=== PATIENT | male | born 1935 | race Caucasian/White ===

== ENCOUNTER 2021-05-10 09:03 | Inpatient (IN) | payer MEDICARE ==
[~2021-05-10] VITALS: Ht 175.3 cm; Wt 77.0 kg
[2021-05-10] MEDS ORDERED: SIMVASTATIN20 MG PO (09:39)
[2021-05-10] MEDS ORDERED: ATENOLOL25 MG PO (09:39)
[2021-05-10] MEDS ORDERED: WARFARIN SODIU7.5 MG PO (09:40)
[2021-05-10] MEDS ORDERED: FLOMAX0.4 MG PO (09:40)
[2021-05-10] MEDS ORDERED: SIMBRINZA 1%-0.28 ML OPTH (09:41)
[2021-05-10] MEDS ORDERED: DONEPEZIL HCL5 MG PO (09:41)
[2021-05-10] MEDS ORDERED: TIMO 0.5%-DORZ 25 ML OP (09:42)
[2021-05-10] MEDS ORDERED: PLAVIX75 MG PO (09:49)
--- NOTE | 2021-05-10 13:00 | NUR ---
PT ARRIVED TO FLOOR VIA STRETCHER. PT IS ALERT AND ORIENTED. WITH DEMENTIA IS AT BEDSIDE. PT IS ON 3L NC. CPOX PLACED. VITALS TAKEN AND STABLE. LATE LUNCH PROVIDED. PT SATTING AT 97% ON 3L. TITRATED TO 2LNC. ASSESSMENT COMPLETED. LUNGS WITH CRACKLES. AND CONJESTED. PT WITH WET COUGH. COUGHING UP MODERATE AMOUNTS OF THICK SPUTUM. BOWEL TONES ACTIVE. ORIENTED TO ROOM. CALL LIGHT IN REACH. PT INFORMED HE NEEDS TO CALL [employer] TO COME REMOTE PILOT OPERATOR HE IS HER INTERNSHIP COORDINATOR CAREGIVER. PT UNDERSTANDS. CHARGE NURSE MADE CALL TO MARIA FERNANDA MIJARES DISCUSS PLANS FOR PICKING HER UP.
--- NOTE | 2021-05-10 13:09 | NUR ---
SPOKE WITH PT'S SON MARYANA REGARDING HIS MOTHER. ADVISED THAT SOMEONE, EITHER HIM, A FRIEND OR OTHER FAMILY MEMBER NEEDS TO COME ASSUME CARE OF HIS MOTHER WE CANNOT HAVE A PT A PRIMARY CAREGIVER FOR SOMEONE ELSE. HIS DAD CALLED HIS NUMBER WHILE WE WERE TALKING AND NOW HE IS CURRENTLY TALKING TO TO PATIENT. IS CURRENTLY IN ROOM SECURITY BROUGHT HER AFTER SHE WAS FOUND CRYING IN THE FRONT OF BUILDING.
[2021-05-10] MEDS ORDERED: TRELEGY ELLIPT1 EACH INH (13:38)
[2021-05-10] MEDS ORDERED: LEVALBUTER1.25 MG/3 INH (14:34)
[2021-05-10] MEDS ORDERED: DIVALPROEX SOD250 MG PO (14:35)
[2021-05-10] MEDS ORDERED: DULOXETINE HCL30 MG PO (14:35)
[2021-05-10] MEDS ORDERED: ATROPINE SULFATE2 ML OPTH (14:41)
[2021-05-10] MEDS ORDERED: FLUTICASONE PRO16 GM NAS (14:42)
[2021-05-10] MEDS ORDERED: VITAMIN D325 MC3 PO (14:42)
--- NOTE | 2021-05-10 15:00 | NUR ---
PT ARRIVED TO FLOOR VIA STRETCHER. PT IS ALERT AND ORIENTED. WITH DEMENTIA IS AT BEDSIDE. PT IS ON 3L NC. CPOX PLACED. VITALS TAKEN AND STABLE. LATE LUNCH PROVIDED. PT SATTING AT 97% ON 3L. TITRATED TO 2LNC. ASSESSMENT COMPLETED. LUNGS WITH CRACKLES. AND CONJESTED. PT WITH WET COUGH. COUGHING UP MODERATE AMOUNTS OF THICK SPUTUM. BOWEL TONES ACTIVE. ORIENTED TO ROOM. CALL LIGHT IN REACH. PT INFORMED HE NEEDS TO CALL [employer]I TO COME WEB PROGRAMMER HE IS HER COMMERCIAL ARTIST LETTERING CAREGIVER. PT UNDERSTANDS. CHARGE NURSE MADE CALL TO MARIA FERNANDA MIJARES DISCUSS PLANS FOR PICKING HER UP.
--- NOTE | 2021-05-10 16:07 | NUR ---
Medications reconciled using pharmacy records, patient's home med list and patient interview. Patient takes most of his medications in the evening and he has taken all of his home medications this morning before admitted
--- NOTE | 2021-05-10 18:05 | NUR ---
Patient just started eating dinner. Bed linens were changed. Patient is sitting up in bed. Vitals, I&Os are complete.
--- NOTE | 2021-05-10 18:22 | NUR ---
PT SAT UP IN BED FOR DINNER 2L NC IN PLACE. BROUGHT TO ER FOR COVID TEST. PT DENEIS SOB OR PAIN. CALL LIGHT IN REACH. SON GETTING READY TO COME TO TAKE CARE OF PT'S .
--- NOTE | 2021-05-10 20:59 | NUR ---
on 2L NC, moist productive cough of white/yellow phlegm. lungs wheezing, sl lfa, irregular heart rate, has mechanical valve, had loose stools, tolerarting fluids, cbg 226, 5 units humolog. on airborne isolation precautions. cooperative, in room
--- NOTE | 2021-05-10 22:32 | EKG ---
[facility] [address] [place] [address] Signed Sinus rhythm with premature atrial complexes Cannot rule out Anterior infarct , age undetermined Abnormal ECG No previous ECGs available Confirmed by MAYA SHEPPARD MD ([id number]) on 05/10/2021 10:31:54 PM Electronically Signed By: MAYA SHEPPARD MD 05/10/212231 PATIENT NAME: TRAVIS PIERSON Bob Electrocardiogram DATE OF : 37 PHYSICIAN: MAYA SHEPPARD MD REPORT #: [id number] REPORT IS CONFIDENTIAL AND NOT TO BE RELEASED WITHOUT AUTHORIZATION
--- NOTE | 2021-05-11 00:50 | NUR ---
CONT ON AIRBORNE ISOLATION PRECAUTIONS, IN ROOM, CONFUSED, CAME OUT OF ROOM, REMINDED TO STAY IN ROOM, AND ON GOING BACK SHE WALKED INTO WRONG ROOM. REMINDED AGAIN, PLEASANTLY CONFUSED AND REDIRECTABLE. FRESH FLUIDS GIVEN TO HER. PT W O2 2LNC, TELE#[address], SATS 94#, VERBAL AND WRITTEN INFORMATION AND REMINDERS ABOUT PRONING GIVEN, TURNED TO LEFT SIDE, COOPERATIVE, FOLLOWS INSTRUCTIONS, ALL PROCEDUREES EXPLAINED. VOIDED SMALL AMOUNS DARK YELLOW URINE. TOLERATING FLUIDS WELL, NO EMESIS.
--- NOTE | 2021-05-11 01:21 | NUR ---
PTS CAME OUT OF ROOM AGAIN, REMINDED TO STAY IN ROOM SHE IS COVID+, EASILY REDIRECTABLE, REDIRECTED TO ROOM. SON IS SUPPOSSED TO COME AND GET PT, NOT HERE YET. FRESH FLUIDS AND BLANKET GIVEN TO , IN RECLINER. PT AWAKE, GETTING NEB TX, ON 2LNC, TELE/CPOX #[address] SATS WERE 91%
--- NOTE | 2021-05-11 02:01 | NUR ---
pt cooperative, sats 85% on 2L, increased to 3L, sats went up and then dropped to 87%, placed on Oxymask at 4L, sats per tele/cpox 90-92%. cooperative, proned to L sided, no void since last night. tolerating liquids, has moist productive cough with white-yellow phlegm. goes back to sleep, call light at bedside. Son here from [facility], to take mother home. Pts left with son
--- NOTE | 2021-05-11 05:21 | NUR ---
Up to edge of bed, urinating, using urinal, O2 Oxymask came undone from wall, sasts 76%, back on Oxymask 4L NC, slight sob with exertion noted once O2 was back on. sat on edge of bed for 5-10 minutes, talking sats 90-97%. Back to bed, with minimum of assist.
--- NOTE | 2021-05-11 05:55 | NUR ---
Pt has slept this shift, was on 2L Oxymask , desatted to low 80's, increaed to 3L then 4L. currently on 4L NC, pt did desatted to 76% when up to edge of bed to use urinal, tubing came off wall, recuperated well once O2 was back on, slight SOb with exertion noted, lungs with wheezing and crackles, occassional moist productive cough of white/yellow thick phlegm. cooperative , information on Covid proning positioning given and understood by pt, has turned to both R and Left proning sides. hob elevated to comfort. on Airborne isolation precautions. tolerating fluids well, no emesis, uses call light. sl patent. .
--- NOTE | 2021-05-11 07:24 | NUR ---
Shift report received from RN Kati pt resting safely in bed w/ call light in reach. 90% on 4L via oxy mask.
--- NOTE | 2021-05-11 08:00 | NUR ---
Spoke with Carlos, he states he lives in [place], [place] in a 1 story home. He spends [place]ry in [place] and winter in [place]. Pt was passing through [place] on his way home to [place] when he became symptomatic with covid. Son arrived from [place] last night and took mom, who has dementia to a motel. Pt states he is retired and uses [facility] for his pharmacy. He uses [email or web address] for routine meds. He pc p is Karen Damon at [facility]. Discussed 02 with pt as he is on 024L and 02 qualifier on day of discharge will complete. Pt plans on cont. to drive and self home to [place]. I will work with [employer] to find one that will supply 02 to [place].
--- NOTE | 2021-05-11 08:25 | NUR ---
PT RESTING IN BED SAFELY W/ CALL LIGHT IN REACH. MORNING ASSESMENT COMPLETE AND SCHEDULED MEDS GIVEN PER PROVIDER ORDERS. PT DENIES ANY NEEDS AT THIS TIME, RT ESTELLE IN ROOM GIVING NEB TREATMENT
--- NOTE | 2021-05-11 10:00 | NUR ---
Spoke with Jess at [facility] in [facility]. Updated, pt wanting to cont. on to [place] in his RV to his home. She states they do cover [place], [place]. She request face sheet and chart notes. I will fax 02 qualifier on day of dc. She will contact [place] office and arrange ofr 02 in the home when pt arrives in 3-5 days. [facility] will deliver concentrator and tanks for pt to use on his trip home.
--- NOTE | 2021-05-11 10:38 | NUR ---
PT SITTING UP ON SIDE OF BED W/ CALL LIGHT IN REACH, PT DENIES ANY NEEDS AT THIS TIME. O2 SATS 91% ON 4L VIA NC.
--- NOTE | 2021-05-11 10:53 | NUR ---
Patient ate 25% of breakfast and said it tasted good, but he's lost his sppitite. He refused lunch but he said he may change his mind to eat later. Vitals are complete and I&Os.
--- NOTE | 2021-05-11 12:00 | NUR ---
RT IN ROOM GIVING PT NEB TREATMENT. PT DENIES ANY NEEDS AT THIS TIME. O2 SATS 98% ON 4L VIA NC
--- NOTE | 2021-05-11 13:13 | NUR ---
Spoke with Carlos, he plans on dc this afternoon or tomorrow. Updated [facility] will provide concentrator and portable 02 to home and will contact the closest store to set up 02 when he arrives home. He cont. to drive himself and his to [place]. States if he gets tired, they are in a motorhome and will stop and rest. He states he is also + for covid now. He is anxious to get home. Informed I will speak with the about ordering an 02 qualifier today, so o2 can be delivered early tomorrow.
--- NOTE | 2021-05-11 13:46 | NUR ---
Patient says that they are not very hungry mainly to a loss in appitite. Patient said to ask for dinner order later. Patient is going to go to the restroom real quick. Call light is in reach.
--- NOTE | 2021-05-11 14:15 | NUR ---
PT SITTING UP IN BED SAFELY W/ CALL LIGHT IN REACH. PT DENIES SOB OR ANY NEEDS AT THIS TIME. O2 SATS 93% ON 4L VIA NC.
--- NOTE | 2021-05-11 15:47 | NUR ---
Received 02 qualifier, note from , and RX. All faxed to Jess at [facility] and they will deliver 02 tomororw am. Pt updated and again stated my concern for him to attempt to drive to [place]. He states he will stop and rest if they get tired. He concerned as it is starting to snow in this area and [place] the way to [place] and he feels he needs to get home before there is increased snow. I encouraged him to return and stay with his son for a week but pt refuses. Pt again reminds me they are traveling in a motor home and he can stop at any point he needs to.
--- NOTE | 2021-05-11 16:00 | NUR ---
PT RESTING IN BED IN THE PRONE POSITION, DENIES SOB OR NEEDS AT THIS TIME, CALL LIGHT IN REACH. O2 SATS 99 ON 4L VIA NC
--- NOTE | 2021-05-11 18:05 | NUR ---
PT SITTING UP ON SIDE OF BED, W/ CALL LIGHT IN REACH. PT ESTING DINNER, DENIES SOB OR NEEDS AT THIS TIME. O2 SATS 90% ON 4L VIA NC
--- NOTE | 2021-05-11 18:07 | NUR ---
Patient vitals, I&Os are complete. Call light is reach.
--- NOTE | 2021-05-11 20:10 | NUR ---
was on 4L NC, decreaesd to 3L, tele/cpox #6 97%, will continues to wean off. Lungs clear with fine crackles bases, moist productive cough present of thick white/yellow phlegm. brachardic to 58 at times, has pacemaker and heart aortic valve replaced in 2004. denies sob or CP, BP was 97/39. will recheck again. pt was sleeping and woken up when vitals were taken. Tolerating liquids well, no emesis, no bm. uses urinal, voiding small amount dark yellow urine. uses call light, hs care done, pt cooperative, L eye noted to bemore prominent thatn R, "its normal, pt stated". COntinues on airborne isolation precautions. alert and oriented, pleasant and cooperative. coontinue to reinforce proning positining, pt stated understanding
--- NOTE | 2021-05-11 23:29 | NUR ---
PT PRONING ON HIS ABD, SATS 100% PER TELE#6, O2 DECREASED TO 2L, SATS 93%. NO COUGH AT THIS TIME. USED URINAL. CALL LIGHT AND FLUIDS AT BEDSIDE. CONTINUES ON AIRBORNE PRECAUTIONS
--- NOTE | 2021-05-11 23:54 | NUR ---
UP TO EDGE OF BED TO URINATE, ON 2LNC, DESATTED TO 79%, BACK TO BED, O2 INREAED TO 3 THEN 4L AGAIN, OR TUBE REPOSITIONED. PRONING ON ABD, SATS 97% ON 4L, NO COUGH, DENIES SOB WITH EXERTION, COOPERATIVE
--- NOTE | 2021-05-12 02:31 | NUR ---
proning to his abd, o2 has been weaned down to 2lnc, sats 98-100% on 2L when proning, no distress, tele/cpox#[address] fluids and call light at bedside
--- NOTE | 2021-05-12 04:06 | NUR ---
PT HAD TAKEN O2 TUBING OFF NARE, DESATTED TO 73%, O2 2LNC BACKON, INMEDIATELEY STARTED CLIMBING , CURRENT SATS 95%, GOES BACK TO SLEEP
--- NOTE | 2021-05-12 05:15 | NUR ---
pt O2 weaned down from 4 at begining of shift to 1.5LNC at this time, tele#6 sats 93%. no resp distress, had dessatted earlier on shift ehen he accidentally took O2 off nares, and when up to urinate and took probe off finger. slight sob with exertion noted earlier on shift, but not the second time when up to usirate, uses urinal. voiding small amounts but QS. alert, oriented, foolows proning positioning. tolerating liquid and diet well. no emesis. CBG was 296, received 5 units ss Insulin. pt is to be dc today. continues on airborne isolation precautions
--- NOTE | 2021-05-12 08:43 | NUR ---
Tylenol 650mg po and tessalon perles 100mg po admin for cough and gerneralized pain.
--- NOTE | 2021-05-12 09:29 | NUR ---
Patient ate 25% of his breakfast. Call light is in reach. Patient is talking on the phone.
[2021-05-12] MEDS ORDERED: DEXAMETHASONE6 MG PO (10:25)
[2021-05-12] MEDS ORDERED: PANTOPRAZOLE SO40 MG PO (10:25)
--- NOTE | 2021-05-12 11:20 | NUR ---
Patient resting in bed, a&ox4. Patient remains on 4L oxygen per nc, respirations even and non labored. Patient denies sob at this time. Personal supplies and call light within reach.
== END 2021-05-12 12:15 | disposition home or self-care (01) | DRG 177 ==
LOC: ED 09:03 → MS 11:44
PROVIDERS: ADMIT Student in an Organized Health Care Education/Training Program; ATTEND Student in an Organized Health Care Education/Training Program
PROC: 8E0ZXY6 Isolation (ICD-10-PCS; principal; 2021-05-10)
PROC: XW033E5 Introduction of Remdesivir Anti-infective into Peripheral Vein, Percutaneous Approach, New Technology Group 5 (ICD-10-PCS; 2021-05-10)
PROC: 3E0DX3Z Introduction of Anti-inflammatory into Mouth and Pharynx, External Approach (ICD-10-PCS; 2021-05-10)
PROC: XW0DXM6 Introduction of Baricitinib into Mouth and Pharynx, External Approach, New Technology Group 6 (ICD-10-PCS; 2021-05-10)
PROC: 5A09457 Assistance with Respiratory Ventilation, 24-96 Consecutive Hours, Continuous Positive Airway Pressure (ICD-10-PCS; 2021-05-11)
DX: U07.1 COVID-19 (principal); J96.01 Acute respiratory failure with hypoxia; J12.82 Pneumonia due to coronavirus disease 2019; J44.0 Chronic obstructive pulmonary disease with (acute) lower respiratory infection; J44.1 Chronic obstructive pulmonary disease with (acute) exacerbation; I25.10 Atherosclerotic heart disease of native coronary artery without angina pectoris; I10 Essential (primary) hypertension; Z79.01 Long term (current) use of anticoagulants; I48.91 Unspecified atrial fibrillation
CPT/HCPCS: 71045; 80053; 81001; 82803; 83605; 83735; 83880; 84484; 85007; 85025; 85610; 85730; 93005; 93010; 94640; 94760; 94761; 96374; 99285-25; A9270; J1815; J2930; J7050; J7121; U0003

== ENCOUNTER 2021-05-13 07:42 | Inpatient (IN) | payer OTHER ==
[~2021-05-13] VITALS: Ht 175.3 cm; Wt 73.9 kg
[~2021-05-13 07:42] MED LIST: ATENOLOL25 MG PO; ATROPINE SULFATE2 ML OPTH; DEXAMETHASONE6 MG PO; DIVALPROEX SOD250 MG PO; DONEPEZIL HCL5 MG PO; DULOXETINE HCL30 MG PO; FLOMAX0.4 MG PO; FLUTICASONE PRO16 GM NAS; LEVALBUTER1.25 MG/3 INH; PANTOPRAZOLE SO40 MG PO; PLAVIX75 MG PO; SIMBRINZA 1%-0.28 ML OPTH; SIMVASTATIN20 MG PO; TIMO 0.5%-DORZ 25 ML OP; TRELEGY ELLIPT1 EACH INH; VITAMIN D325 MC3 PO; WARFARIN SODIU7.5 MG PO
--- OUTSIDE RECORDS SUMMARY | 2021-05-13 07:50 | XMS ---
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 Giulia has no Care Guidelines for this patient. Abdiel VISIT COUNT (12 MO.) 2 [facility] TOTAL 2 NOTE: Visits indicate total known visits. ED/[facility] VISIT TRACKING (12 MO.) [facility] 07[facility] COMPLAINT: - SOB 05/10/2021 09:05 [facility] TYPE: Emergency COMPLAINT: - DIARRHEA, COUGH, FEVER, SOB INPATIENT VISIT TRACKING (12 MO.) 05/10/2021 11:44 [facility] TYPE: Medical [facility] COMPLAINT: - COVID 19 VIREMIA DIAGNOSES: - Chronic obstructive pulmonary disease with (acute) exacerbation - Essential (primary) hypertension - COVID-19 - Acute respiratory failure with hypoxia - buttermaker (current) use of anticoagulants - Chronic obstructive pulmonary disease with (acute) lower respiratory infection - Atherosclerotic heart disease of [place] coronary artery without angina pectoris [email or web address]
--- NOTE | 2021-05-13 11:00 | NUR ---
PT ARRIVED IN CCU AT 1040. PT ON C-PAP AT 55%, ALL LOBES HAVE RONCHI PRESENT WITH SOME OCCASIONAL WHEEZING. VALVE CLICK HEARD ON HEART, PACER ON RIGHT CHEST SIDE. ABD SOUNDS PRESENT, LAST BM 05/11/21. NO PERPHERAL EDEMA NOTED. PT OVERALL MOVES WELL, PT AAO. SBP <100, WILL HOLD BP MEDS, MD SHEPPARD AWARE.
--- NOTE | 2021-05-13 12:29 | NUR ---
PT IN ROOM RESTING. PT STILL ON C-PAP. WILL SWITH OVER TO HIGH FLOW NC. NO NEW CONCERNS NOTED AT THIS TIME.
--- NOTE | 2021-05-13 14:55 | NUR ---
TRAIL WITH HIGH FLOW NC WAS DONE AT 15L 02. THIS TRIAL DID NOT GO WELL. O2 SATS PLUMETED TO 79% WHEN PT IS TALKING OR COUGHING. THE ONLY TIME O2 SATS WERE 88-90% WAS WHEN PT WAS PERFECTLY STILL CONCENTRATING ON HIS BREATHING. PT ALSO NOW IS SPITTING UP BLOOD WHICH IS A NEW FINDING. LUNG SOUNDS COARSE AND WET THOUGHOUT. MD SHEPPARD NOTIFIED. ORDERS TO FOLLOW
--- NOTE | 2021-05-13 15:19 | NUR ---
PT TO GO TO CT IN 10 MINUTES. WILL BRING PT DOWN THERE ON NON-REBREATHER 15L O2.
--- NOTE | 2021-05-13 15:55 | NUR ---
PT BACK FORM CT. PT DID WELL OVERALL. PT BACK IN ROOM AND DENIES INCREASED SOB AT THIS TIME. C-PAP ON 55% FIO2.
--- NOTE | 2021-05-13 17:15 | NUR ---
HIGH FLOW NC TRIAL FAILED ONCE MORE. O2 SATS MID 80;S. THIS ATTEMPT WAS BETTER THAN THE FIRST ONE. PT NOW BACK ON C-PAP. WILL UPDATE DAUGHTER AND .
--- NOTE | 2021-05-13 19:20 | NUR ---
REPORT RECIEVED FROM DAY SHIFT RN, CARE OF PATIENT ASSUMED AT THIS TIME.
--- NOTE | 2021-05-13 19:33 | EKG ---
[facility] [address] [place] [address] Signed Atrial fibrillation with rapid ventricular response Nonspecific ST and T wave abnormality Abnormal ECG When compared with ECG of 10-MAY-2021 10:10, Atrial fibrillation has replaced Sinus rhythm Vent. rate has increased BY 54 BPM Nonspecific T wave abnormality, worse in Inferior leads Confirmed by MAYA SHEPPARD MD ([id number]) on 05/13/2021 7:33:03 PM Electronically Signed By: MAYA SHEPPARD MD 05/13/211932 PATIENT NAME: TRAVIS PIERSON Electrocardiogram DATE OF : 37 PHYSICIAN: MAYA SHEPPARD MD REPORT #: [id number] REPORT IS CONFIDENTIAL AND NOT TO BE RELEASED WITHOUT AUTHORIZATION
--- NOTE | 2021-05-13 20:00 | NUR ---
in room for assessment and medication administration. Pt alert and oriented. sitting up on side of bed on CPAP. spo2 = 94% Pt placed on 15 L high flow NC for medication administration. PT able to maintain spo2 above 88% with talking and taking medicaitons. respirations even but labored. Fine crackles noted in all air hernandez. Plan of care for evening established, all questions answred. pt remains on high flow at this time. spo2 =97% on 15 L. pt laying on left side. call light within reach. will continue to monitor.
--- NOTE | 2021-05-13 21:12 | NUR ---
RT IN ROOM TO GIVE PT BREATHING TX AND PLACE PT BACK ON CPAP. CALL LIGHT WITHIN REACH. WILL CONTINUE TO MONITOR.
--- NOTE | 2021-05-14 | NUR ---
ASSESSMENT COMPLETED. PT ASLEEP ON LEFT SIDE, FINE CRACKLES NOTED THROUGH OUT ALL AIR JONES, MORE PROMINENT IN THE DEPENDENT LUNG BASE. PT A AFEBRILE, DENIES PAIN OR DISCOMFORT,CALL LIGHT WITHIN REACH. DENIES NEEDS AT THIS TIME.
--- NOTE | 2021-05-14 02:57 | NUR ---
RT IN ROOM WITH PT AT THIS TIME.
--- NOTE | 2021-05-14 03:19 | NUR ---
ASSESSMENT COMPLETED. PT STOOD AT BEDSIDE TO VOID ON CPAP. SPO2 = 90% ON CPAP WITH ACTIVITY. AT THIS TIME PLACED ON HIGH FLOW NC AT 15 L. SPO2 =90%. PT LAYING ON LEFT SIDE. CRACKLES IN BOTH BASES AND COARSESNESS NOTED IN UPPER AIRWAY. PT HAD COUGHING EPISODE, COUGH PRODUCED THICK YELLOW TINGED SPUTUM. SPO2 DROPPED INTO THE MID 70S DURING EPSIDOE. SPO2 BACK INTO THE HIGH 80S WITH REST. WARM BLANKETS PROVIDED. CALLL LIGHT WITHIN REACH. WILL CONTINUE TO MONITOR
--- NOTE | 2021-05-14 06:50 | NUR ---
PT HAD COUGHING FIT, SPO2 DECREASED INTO THE 70S ON HIGH FLOW NASAL CANNULA. PLACED BACK ON CPAP WITH FIO2 AT 100 PERCENT. PTS RECOVERED WITH SATURATIONS UP TO 100 PERCENT. FIO2 DECREASED BACK DOWN TO 50%. CALL LIGHT WITHIN REACH. WILL CONTINUE TO MONITOR.
--- NOTE | 2021-05-14 08:15 | NUR ---
INR 5.3 AT 0700. MD SHEPPARD CALLED. NO ORDERS RECEIVED. OVER STATED THAT HE FEELS SHORT OF BREATH AND THAT IT FEELS LIKE HE CANNOT BREATH DUE TO PHLEGM STUCK IN HIS THROAT. PT NOW AGAIN HAS BLOODY THICK PHLEGM PRESENT. PT ON C-PAP. WHEN PT WAS TAKE OFF C-PAP AND PUT ON HIGH FLOW NC, O2 SATS DROPPED IMMEDIATLY TO 70%. ALL FINGER NAILS ARE CYANOTIC AT THIS TIME. PT IS COOL TO TOUCH ALSO. MD SHEPPARD IS AWARE OF ALL THIS. ALL LOBES ARE VERY COARSE WITH CRACKLES IN THE BASES. ABD SOUNDS ACTIVE. NO PERIPH. EDMEA NOTED.
--- NOTE | 2021-05-14 10:15 | NUR ---
TRIED TO PRONE PT ON HIS STOMACH. PT WAS NOT ABLE TOLERATE IT WELL AT ALL. MD SHEPPARD WAS CALLED ABOUT INCREASED WORK OF BREATHING, RR RATE.
--- NOTE | 2021-05-14 10:34 | NUR ---
PT CALLED STATING THAT HE NEEDED TO VOID. BEFORE THIS RN COULD GET INTO THE ROOM, PT HAD TURNED HIMSELF AND PULLED THE CIRCUIT FROM HIS CPAP. REPLACED CIRCUIT AND PT STATED "TAKE IT OFF OF ME, I CAN NOT BREATHE." CPAP REMOVED AND PLACED ON HIGH FLOW AT 15L+. O2 SATS DROPPING TO 77%. PT COUGHING UP COPIOUS AMOUNTS OF SPUTUM. RT CALLED TO ROOM TO ADJUST SETTINGS ON CPAP. PT PLACED BACK ON CPAP PER RT. BOTH THIS RN AND RT SPOKE TO PT ABOUT THE NEED TO CONTINUE TO WEAR HIS CPAP, EDUCATION GIVEN ABOUT INTUBATION UPON PTS REQUEST. PTS O2 SATS IMPROVING TO 89-91%. PTS PRIMARY RN NOTIFIED.
--- NOTE | 2021-05-14 11:15 | NUR ---
MD SHEPPARD IN PT ROOM NOW. CLEMENT PLACED NOW, MEDICATIONS TO BE GIVEN. WILL CONTINUE TO MONITOR.
--- NOTE | 2021-05-14 11:43 | NUR ---
Medications reconciled
--- NOTE | 2021-05-14 12:48 | NUR ---
FENTANYL SEEMED TO HAVE WORKED WELL FOR PT AND HIS WORK OF BREATHING SO FAR. RR WDL TO MID 20'S.
--- NOTE | 2021-05-14 14:17 | NUR ---
PT ON FENTANYL DRIP AND STATED THAT HE FEELS MUCH BETTER IN REGARDS TO HIS BREATHING. WILL CONTINUE TO MONITOR.
--- NOTE | 2021-05-14 16:15 | NUR ---
ALL LOBES ARE COARSE BUT PT OVERALL FEELS BETTER. PT REMAINS ON C-PAP AT 80%. PT HAS BEEN TURNED SLIGHTLY TO THE RIGHT AND IS TOLERATING IT WELL. WILL CONTINIUE TO MONITOR. PT HAS A TEMP OF 100.1 F. MD TO BE CALLED.
--- NOTE | 2021-05-14 18:00 | NUR ---
BLOOD CULTURES TO BE DRAWN, PRN TYLENOL GIVEN. NO OTHER CONCERNS NOTED AT THIS TIME.
--- NOTE | 2021-05-14 19:41 | NUR ---
REPORT RECIEVED FROM DAY SHIFT RN, CARE OF PATIENT ASSUMED AT THIS TIME. PT RESTING ON CPAP, SPOE =98%, HR 60-65 AT REST. DENIES NEEDS AT THIS TIME.
--- NOTE | 2021-05-14 20:09 | NUR ---
IN ROOM FOR ASSESSMENT AND MEDICATION ADMINISTRATION. PT RESTING ON CPAP AT 80%, SPO2 =98%. REMOVED CPAP AT THIS TIME AND PLACED PT ON 15 L HIGH FLOW NC TO TAKE MEDS AND FOR ORAL CARE. PT ABLE TO TAKE MEDS, BUT SPO2 DECREAED INTO THE HIGH 70S WITH MINIMAL ACTIVITY IN BED. PT NOW BACK ON CPAP. PT STATES PAIN AND DISCOMFORT HAVE IMPROVED AND COUGH HAS LESSENED IN FREQUENCY. IV FENTYNAL AND ABX CONTINUE TO INFUSE. COARSE CRACKLES NOTED IN ALL AIR JONES, WITH LESS AIR FLOW HEARD IN LEFT AIR SPACES. ASSISTED PT WITH REPOSTIONING. PLAN OF CARE ESTABLISHED. CALL LIGHT WITHIN REACH. WILL CONTINUE TO MONITOR.
--- NOTE | 2021-05-14 21:57 | NUR ---
Pt resting on CPAP. Spo2 =97% fentynal continues to infuse. PT asleep, breathing even and unlabored RR=23. call light within reach. Will continue to monitor.
--- NOTE | 2021-05-14 22:37 | NUR ---
ASSISTED PT WITH TAKING OFF MASK TO DRINK. SPO2 DOWN INTO THE LOW 80S ON HIGH FLOW. ORAL CARE PROVIDED. PT BACK ON CPAP. SPO2 =94 PERCENT. CALL LIGHT WITHINREACH. PT DENIES FURTHER NEEDS AT THIS TIME.
--- NOTE | 2021-05-15 00:30 | NUR ---
ASSESSEMENT COMPLETED. PT SPO2 =98%, DECREASED FIO2 TO 65% PT ABLE TO MAINTAIN SPO2 GREATER THAN 94%. ASSISTED PT WITH REPOSITIONING IN BED. FENTYNAL CONTINUES TO INFUSE. CALL LIGHT WITHIN REACH. WILLCONTINUE TO MONITOR.
--- NOTE | 2021-05-15 02:30 | NUR ---
IV ABX NOW INFUSING. FENTYNAL DRIP CONTINUES TO INFUSE. PT REMAINS ON CPAP AT 65%, SPO2 = 93%. CALL LIGHT WITHIN REACH. WILL CONTINUE TO MONITOR.
--- NOTE | 2021-05-15 03:43 | NUR ---
ASSESSMENT COMPLETED. PT TOOK OF CPAP TO DRINK WATER. SPO2 DECREASED TO THE LOW 80S. ASSISTED PT WITH REPOSITIONING IN BED. PT STATES PAIN IS WELL CONTROLLED. FENTANYL DRIP CONTINUES TO INFUSE. CALL LIGHT WITHIN REACH. NO FURTHER NEEDS AT THIS TIME.
--- NOTE | 2021-05-15 07:36 | NUR ---
REPORT RECEIVED FROM NIGHTSHIFT RN, WILL CONTINUE PLAN OF CARE.
--- NOTE | 2021-05-15 07:43 | NUR ---
DR. SHEPPARD NOTIFIED OF CRITICAL LAB VALUE, INR OF 6.96. NO NEW ORDERS GIVEN AT THIS TIME, WILL CONTINUE PLAN OF CARE.
--- NOTE | 2021-05-15 08:28 | NUR ---
THIS RN IN TO ASSESS PT AND ADMINISTER SCHEDULED MEDICATIONS. RT IN ROOM AT THIS TIME ASSESSING PT. PT ON CPAP AT THIS TIME, FIO2 CHANGED FROM 80% TO 65% BY THE RT. VITALS TAKEN AFTERWARDS. PT PLACED ON HIGHFLOW NC 15+L TO GIVE PO MEDICATIONS. PT ABLE TO TAKE THEM BUT DESATTED TO 78-80% AFTERWARDS. PT PLACED BACK ON THE CPAP AFTERWARDS, SPO2 INCREASED BACK TO 88-90%. PT ASSESSED AFTERWARDS, PT DENIES PAIN AT THIS TIME, DENIES NUMBNESS AND TINGLING, AND REPORTS OCCASIONAL SHORTNESS OF BREATH BUT NOT AT THE MOMENT. PT REPORTS NO FURTHER NEEDS AT THIS TIME WHEN ASKED AND IS RESTING IN BED ON THE CPAP, FENTANYL DRIP INFUSING AT ORDERED RATE, CALL LIGHT IN REACH, BED IN LOWEST POSITION, WILL CONTINUE PLAN OF CARE.
--- NOTE | 2021-05-15 09:10 | NUR ---
THIS RN IN TO CHECK ON PT. PT SITTING UP IN BED RESTING AND REPORTS NO NEEDS. PT DENIES PAIN AT THIS TIME, PT ON THE CPAP, SETTINGS UNCHANGED, SPO2 94%. CALL LIGHT IN REACH, BED IN LOWEST POSITION, FENTANYL DRIP INFUSING, WILL CONTINUE PLAN OF CARE.
--- NOTE | 2021-05-15 10:40 | NUR ---
THIS RN IN TO ADMINISTER SCHEDULED MEDICATIONS, PT SITTING UP IN BED ON THE CPAP, SETTINGS UNCHANGED. PT AWAKE AND ALERT AT THIS TIME AND DENIES HAVING ANY PAIN OR SHORTNESS OF BREATH AT THIS TIME. IMAGING IN TO TAKE A CXR. SCHEDULED MEDICATIONS ADMINISTERED AFTERWARDS (SEE SEP), SCHEDULED IV ANTIBIOTICS NOW INFUSING. PT REPORTS NO FURTHER NEEDS WHEN ASKED AT THIS TIME, CALL LIGHT IN REACH, BED IN LOWEST POSITION, FENTANYL DRIP INFUSING AT ORDERED RATE, IV ABX INFUSING, WILL CONTINUE PLAN OF CARE.
--- NOTE | 2021-05-15 12:00 | NUR ---
RESPONDED TO PT CALL LIGHT, PT STATED HE WANTED TO TALK TO HIS SON ON THE PHONE. THIS RN IN TO ASSIST PT. VITALS TAKEN, PT ASSESSED, (SEE CHART). PT AWAKE AND ALERT ON THE CPAP AT PREVIOUS SETTINGS, PT CHANGED OVER TO THE HIGHFLOW NC AT 15L AND A NONREBREATHER MASK OVER IT AT 15+L. PT ABLE TO CALL SON ON THE PHONE. PT LEFT ON NC AND NRB TO EAT HIS LUNCH. PT ABLE TO MAINTAIN SPO2 88-90% BUT OCCASIONALY GOES TO 85% WHILE MOVING THE NRB ASIDE TO EAT FOOD. PT REPORTS NO FURTHER NEEDS AT THIS TIME WHEN ASKED AND IS NOW EATING HIS LUNCH. SPO2 89-90% AT THIS TIME, CALL LIGHT IN REACH, BED IN LOWEST POSITION, IV ABX AND IV FENTANYL INFUSING AT ORDERED RATES, WILL CONTINUE PLAN OF CARE.
--- NOTE | 2021-05-15 12:40 | NUR ---
THIS RN IN TO CHECK ON PT. PT SITTING UP IN BED ON THE NRB AND HIGH FLOW NC, SPO2 91%. PT STATED HE FINISHED EATING LUNCH. PT PLACED BACK ON THE CPAP AT THIS TIME AT 12 AND 65%. PT ASSISTED IN LAYING DOWN ON HIS RIGHT SIDE AFTERWARDS AND IS NOW RESTING THERE. PT REPORTS NO FURTHER NEEDS AT THIS TIME WHEN ASKED, CPAP IN PLACE, SPO2 96%, WILL CONTINUE PLAN OF CARE. CALL LIGHT IN REACH, BED IN LOWEST POSITION
--- NOTE | 2021-05-15 13:31 | NUR ---
THIS RN IN TO CHECK ON PT. PT LAYING IN BED ON THE CPAP AT PREVIOUS SETTINGS AWAKE AND ALERT. PT REPORTS NEEDING TO USE THE BEDSIDE COMMODE. PT CPAP CHANGED FROM 65% FIO2 TO 100%. PT ASSISTED IN STANDING UP AND PIVOTING TO THE COMMDOE. PT DID NOT HAVE A BM AND ONLY PASSED GAS, PT ASSISTED BACK INTO THE BED AFTERWARDS. PT SPO2 MAINTAINED AT 90-95% WHILE ON THE COMMODE, LABORED BREATHING NOTED AFTER GETTING UP AND BACK INTO BED AFTER CHANGING THE LINENS. PT ASSISTED INTO A LEFT SIDE LYING POSITION AND WAS TITRATED DOWN TO 65% FIO2. PT NOW RESTING, CPAP IN PLACE, CALL LIGHT IN REACH, BED IN LOWEST POSITION, IV ABX AND IV FENTANYL INFUSING AT ORDERED RATE, WILL CONTINUE PLAN OF CARE.
--- NOTE | 2021-05-15 14:48 | NUR ---
PT ON THE RECLINER AT THIS TIME, VAPOTHERM AT PREVIOUS SETTINGS. PT DENIES HAVING ANY NEEDS AT THIS TIME WHEN ASKED, WILL CONTINUE PLAN OF CARE. CALL LIGHT IN REACH.
--- NOTE | 2021-05-15 15:30 | NUR ---
THIS RN IN TO ASSESS PT AND TAKE VITALS. PT LAYING ON HIS RIGHT SIDE ON THE CPAP, SETTINGS UNCHANGED, SPO2 90-92%. PT DENIES SHORTNESS OF BREATH AT THIS TIME AND DENIES HAVING PAIN. PT DOES REPORT A COUGH AND REQUESTED PRN COUGH MEDICATION. PT VITALS ASSESSED AND ASSESSMENT DONE (SEE CHART). PT THEN SAT UP IN BED AND GIVEN PRN COUGH MEDICATION (SEE MAR). CPAP MASK READJUSTED AFTERWARDS. IV ABX COMPLETE AT THIS TIME, PT LEFT IV SALINE LOCKED. PT REPORTS NO FURTHER NEEDS AT THIS TIME, DINNER ORDERED, CALL LIGHT IN REACH, BED IN LOWEST POSITION, WILL CONTINUE PLAN OF CARE.
--- NOTE | 2021-05-15 15:48 | NUR ---
THIS RN IN TO ASSESS PT, PT SITTING ON THE RECLINER AT THIS TIME ON THE VAPOTHERM AT 40LPM 100% FIO2. PT DENIES HAVING ANY PAIN OR SHORTNESS OF BREATH AT THIS TIME, SPO2 94%. PT ASSESSED AT THIS TIME AND VITALS TAKEN (SEE CHART). PT THEN PROVIDED WITH ICE WATER. NO FURTHER NEEDS REPORTED AFTERWARDS, PT STILL ON THE RECLINER, CALL LIGHT IN REACH, VAPOTHERM ON, SPO2 NOW 97%, WILL CONTINUE PLAN OF CARE.
--- NOTE | 2021-05-15 17:42 | NUR ---
THIS RN IN TO ADMINISTER SCHEDULED IV ABX. PT AWAKE AND ALERT ON THE CPAP AT 15 AND 65% FIO2, SPO2 92-96%. PT REPORTS NO PAIN OR SHORTNESS OF BREAT AT THIS TIME. SCHEDULED IV ABX STARTED AT THIS TIME (SEE SEP), FENTANYL DRIP STILL INFUSING AT ORDERED RATE. PT DINNER BROUGHT TO HIM AFTERWARDS, PT SAT UP IN BED AND CHANGED TO 15L HIGH FLOW NC AND 15+L NRB MASK, PT SPO2 88-92%. PT NOW IN BED EATING DINNER AT THIS TIME, PT REPORTS NO FURTHER NEEDS WHEN ASKED, CALL LIGHT IN REACH, BED IN LOWEST POSTIION, WILL CONTINUE PLAN OF CARE.
--- NOTE | 2021-05-15 18:10 | NUR ---
THIS RN BACK IN PT'S ROOM TO PLACE PT ON THE CPAP. PT SPO2 88-90% ON THE HIGHFLOW AND NRB, PT ALERT AND ORIENTED. PT PLACED BACK ON THE CPAP AT PREVIOUS SETTINGS OF 15 AND 65%. PT REPORTS NO FURTHER NEEDS WHEN ASKED. CALL LIGHT IN REACH, BED IN LOWEST POSITION, IV ABX AND IV FENTANYL INFUSING ORDERED, WILL CONTINUE PLAN OF CARE.
--- NOTE | 2021-05-15 18:12 | NUR ---
Pt return to hospital after dc to [facility] with 02 from [facility] [place] for colt. Pt did not plug in his concentrator and the battery ran out. Pt returned wit h 02 of 68%. Pt in ICU and on fentany drip to reduce cough. Plan is for pt and to return to [place] with son before attempting to return son in motor home to home in [place].
--- NOTE | 2021-05-15 18:31 | NUR ---
In to discontinue Fentanyl drip per provider order. Wasted remainder of Fentanyl with TOMMY Foster (50ml wasted).
--- NOTE | 2021-05-15 20:56 | NUR ---
ASSESSMENT COMPLETED. MEDICATIONS ADMINISTERED. DISCUSSESD PLAN OF CARE WITH PT AT THIS TIME. PT REPOSITIONED IN BED WITH TWO PERSON ASSIST. PILLOW PLACED UNDER RIGHT SIDE. ORAL CARE AND CLEMENT CARE COMPLETED. LUNGS SOUND COARSE WITH CRACKLES NOTED IN ALL AIR JONES. RR=[id number]. CALL LIGHT WITHIN REACH. DENIES FURTHER NEEDS AT THIS TIME.
--- NOTE | 2021-05-15 21:37 | NUR ---
IN ROOM TO CHECK ON PT. SPO2 MONITOR OFF. PT PULLING OFF GOWN. ASSISTED PT WITH ORGANIZING LINES. SPO2 BACK IN PALCE. CALL LIGHT WITHIN REACH. WILL CONTINUW TO MONITOR.
--- NOTE | 2021-05-15 23:48 | NUR ---
Assessment completed. Assisted pt with repositioning and organizing all lines. Oral care provided. Assement unchanged. spo2 =92% on cpap with FIO2 of 65%. call light within reach. Denies further needs at this time.
--- NOTE | 2021-05-16 03:44 | NUR ---
IN ROOM TO ASSESS PATIENT. PT PLACED IN HIGH FLOW NC AND NONREBREATHER. PT SAT UP AT SIDE OF BED, BRUSHED TEETH, PUT A NEW GOWN ON, AND STOOD TO PLACE CLEAN DRAW SHEET UNDERNEATH HIM. PT UNSTEADY ON FEET. ONE PERSON ASSIST REQUIRED. LUNGS HAVE CRACKLES THROUGHOUT WORSE IN THE RIGHT BASE. PT REPOSTIONED ONTO LEFT SIDE IN BED, CPAP IN PLACE AT FIO2 OF 65%. SPO2 =90% AT THIS TIME. WILL CONTINUE TO MONITOR.
--- NOTE | 2021-05-16 04:54 | NUR ---
PT PULLED OFF CPAP, SITTING UP AT SIDE OF BED. SPO2 DOWN INTO THE 60S. ASSISTED PT BACK TO BED, CPAP BACK IN PLACE SPO2 NOW AT 88% WILL CONITNU E TO CLOSELY MONITOR.
--- NOTE | 2021-05-16 07:50 | NUR ---
Recieved Update from RN and notified son is having difficulty and has many concerns. Attempted to call, but phone number is incorrect in chart. Spoke with [employer] and she thinks she has it in her shred box and will get it for me.
--- NOTE | 2021-05-16 08:47 | NUR ---
IN PATIENT'S ROOM FOR ASSESSMENT, MEDS, BREAKFAST. PT HAS TAKEN MASK OFF UPON ENTRY INTO ROOM AND IS TRYING TO PUT CPAP MASK BACK ON. SP02 DROPS DOWN TO LOW 68%, BUT IS NOW BACK TO 96% WITH CPAP ON AT 70% AND CPAP OF 15 PRESSURE. HR IN THE 60s. AM MEDS TO BE GIVEN AND SWTICH PT TO HIGH FLOW NASAL CANNULA PLUS THE NON REBREATER.
--- NOTE | 2021-05-16 09:00 | NUR ---
Updated by RN. PT is maintaining updated son has many concerns. Son's phone number has been entered incorrectly and I am unable to call. Left a a note in CCU and asked if son calls to have him call me. Received phone number from Taya. Son happened to call in at this time. Discussed needs. He is very concerned he will get covid from his mom. They are staying at [facility]. He is sleeping in his pickup and mom is staying in the RV. Asked if he would like me to contact [facility], and he states no. The arrangement is ok for now. He brought cold weather gear and has a mattress in his pu. Plan at this time is to remain at [facility] in until Sat. Son is calling a friends to drive from [place] and drive his truck home, he will drive his mom and the RV to his house. He owns to homes next to each other and he will have his mom stay in home next to his until dad can be discharge. He wants to know if dad can be transferred near to him in [place], [place]. I let him know I can ask the but don't think this will happen. It is very difficult with the pandemic to transfer pt who are emergent let alone those who are not requiring a transfer. Gave him my direct numbers and will have pts chart updated with son's correct phone number. son is Joe phone is [phone]
--- NOTE | 2021-05-16 09:40 | NUR ---
PATIENT FINISHES BREAKFAST AND THEN NEEDS TO COUGH. WHILE EATING HE WAS ONLY ON HIGH FLOW WALL NASAL CANNULA FLUSH, BUT DURING EATING SP02 DROPS TO LOW 75%, THEREFORE NON REBREATHER ADDED BACK. PT THEN TAKES EVERYTHING OFF TO COUGH, LAYS HIMSELF DOWN IN BED, AND SP02 DROPS LOW AT 60%. BACK ON NONREBREATHER AND NC BUT SP02 NOT COMING UP VERY FAST, THEREFORE BACK ON CPAP NOW. MASK ADJUSTED FOR PATIENT'S COMFORT. CPAP WAS AT 90%, BUT NOW AT 60% AND PRESSURE TURNED DOWN TO 14 FROM 15. SP02 IS 96%. RR 22. PT LOOKS COMFORTABLE AND NOT IN DISTRESS. WILL CONTINUE TO MONITOR CLOSELY.
--- NOTE | 2021-05-16 09:42 | NUR ---
DR. DE LOS SANTOS IN TO SEE PATIENT. ORDERS TO BE REC'D.
--- NOTE | 2021-05-16 11:14 | NUR ---
PATIENT CONTINUES TO BE RESTLESS, PULLING CPAP OFF AT TIMES. PHYS THERAPY NOW GOING INTO ROOM TO SEE PATIENT.
--- NOTE | 2021-05-16 14:18 | NUR ---
DIANNE'S AND SON CAME BACK TO VISIT WITH DIANNE. PT'S GOES INTO ROOM WITH PPE AND TALKS WITH PATIENT WHILE SON STAYS OUT OF ROOOM. PT REMAINS ON CPAP AT 60%, BUT DOES FIDDLE WITH THE STRAPS AND TAKES MASK OFF FAIRLY FREQUENTLLY. PT REMINDED TO NOT TAKE MASK OFF WITHOUT CALLING NURSING STAFF, TO WHICH HE AGREES TO, BUT SEEMS TO FORGET. CONTINUE TO MONITOR.
--- NOTE | 2021-05-16 15:44 | NUR ---
PATIENT GIVEN BED BATH AND TOLERATED WELL. RT IN ROOM AND TURNS CPAP DOWN TO 13 AND 60%. PT OFF CPAP FOR BATH, AND ON WALL NASAL CANNULA FLUSH, WITH NRB MASK OVERTOP FLUSH. AFTER BATH, PT POSITIONED TO RIGHT SIDE TO REST. PT HAVING PRODUCTIVE SPUTUM, LIGHT PINK/WHITEISH TINGED IN COLOR. SP02 IS 92% ON NC. PT STATES AFTER COUGHING AND MOVING IN BED, "OH BOY I'M POOPED." ENCOURAGIN PATIENT TO REST NOW. CONITNUE TO MONITOR. CLEMENT DRAINING YELLOW URINE.
--- NOTE | 2021-05-16 17:44 | NUR ---
PATIENT CLIMBING OUT OF BED, AND TAKES CPAP OFF. SP02 DOWN TO 60%. CPAP MASK BACK ON. PT GIVEN PRN SEROQUEL AT THIS TIME. PT STATES, "I WAS BECKY TO GO CHECK ON THE BOSSNATHEN." PT REMINDED THAT HE IS IN THE HOSPITAL, AND THAT HIS IS AT HER MOTOR HOME TRAILER WITH HER SON. PT SEEMED TO HAVE FORGOTTEN THAT HE IS IN THE HOSPITAL.
--- NOTE | 2021-05-16 19:30 | NUR ---
REPORT RECIEVED CARE OF PATIENT ASSUMED AT THIS TIME.
--- NOTE | 2021-05-16 20:37 | NUR ---
DR DE LOS SANTOS UPDATED ON PT'S WORSENING DISORIENTATION AND ATTEMPTING TO GET OUT OF BED AND TAKING OFF OXYGEN. AN ADDTIONAL ONE TIME DOES OF SEROQUEL 12.5 MG ORDER GIVEN AT THIS TIME (SEE EMAR). BED ALARM IN PLACE. PT CONTINUES TO PULL AT LEADS AND LINES. SPO2 MONITOR MOVED TO PTS TOE. THIS RN WILL CONTINUE TO MONITOR.
--- NOTE | 2021-05-16 21:17 | NUR ---
PT HAS HAD MULTIPLE EPISODES OF PULLING OFF MASK, ATTEMPTING TO GET OUT OF BED, AND PULLING AT LINES AND CORDS. FREQUENT REORIENTATION AND INSTRUCTION WITH THIS RN IN PT ROOM EVERY 15-20 MINUTES.
--- NOTE | 2021-05-17 00:28 | NUR ---
PT HAS BEEN A ONE TO ONE FRO THE LAST THREE HOURS FOR CONFUSION. PT COMPLETELY DISORIENTED TO TIME, LOCATION, SITUATION. ATTEMPTS AT REORIENTATION UNSUCCESSFUL. CIGAR MAKING SUPERVISOR TAKEN OFF AT THIS TIME TO MINIMIZE PT AGITATION. WHEN CPAP IS IN PLACE, PT OXYGEN SATURATIONS 95-98%. BED ALARM IN PLACE, WILL CONTINUE TO MONITOR.
--- NOTE | 2021-05-17 00:31 | NUR ---
PT REMOVED CPAP, STILL LYING IN BED NOT TRYING TO GET UP. SPO2 DOWN TO 46% BY THE TIME THIS RN GOT IN TO BEDSIDE TO REPLCACE MASK. PT COOPERATIVE WITH REDIRECTION BUT REMAINS RESTLESS AND CONFUSED.
--- NOTE | 2021-05-17 01:01 | NUR ---
PRN SEROQUEL GIVEN FOR INCREASED LEVEL OF AGGIATION. BED ALARM IN PLACE. WILL CONTINUE TO MONITOR.
--- NOTE | 2021-05-17 02:13 | NUR ---
pt pulled cpap tubing off of mask. spo2 down to 50 percent. pt attmepting to get out of bed. FIxed tubing, redirected pt. This RN remains at bedside.
--- NOTE | 2021-05-17 03:33 | NUR ---
ASSESSMENT COMPLETED. PT REMAINS DISORIENTED AND IMPULSIVE. PTUNABLE TO MAINTAIN OXYGEN SATURATIONS ON HIGH FLOW NASAL CANNULA AND NONREBREATHER. BACK ON CPAP AT 80% FIO2. PT GIVEN PRN MEDICATION FOR COUGH (SEE EMAR). REPOSITIONED IN BED. BED ALARM IN PLACE. PT REMAINS ON 1:1 SUPERVISION.
--- NOTE | 2021-05-17 04:49 | NUR ---
PT WAS SWABBED FOR COVID 19
--- NOTE | 2021-05-17 05:41 | NUR ---
PT UP OUT OF BED. 2 NURSES TO ASSIST PT BACK INTO BED. PT NOT ABLE TO FOLLOW DIRECTIONS. LAB IN ROOM AT THIS TIME TO DRAW BLOOD. CPAP IN PLACE. BED ALARM ON. WARM BLANKET PROVIDED. WILL CONTINUE TO MONITOR.
--- NOTE | 2021-05-17 07:10 | NUR ---
report recieved. PATIENT ATTMEPING TO GET OOB, IN ROOM WITH PATIENT, TRYING TO REDIREDT PATIENT AND KEEP HIM CALM TO REMAIN IN BED. NOT ABLE TO REDIRECT PATIENT, PATIENT IS PULLING OFF BIPAP MASK. O2 SATS WHEN PATIENT OFF CPAP DOWN TO 77. CPAP REAPPLIED. BED IN [place] POSITION TO TRY AND KEEP PATIENT IN BED. PATIENT IS VERY FRUSTRATED, FIGHTING AGAINST HIMSELF. RR-40. PATIENT IS MOVING ARMS IN AIR. IS VERY DIFFICULT TO CONTROL. I WILL REMAIN IN ROOM UNTIL PATIENT MORE CALM. CPAP SETTING, PRESSURE-13, FIO2-100.
--- NOTE | 2021-05-17 08:10 | NUR ---
RESP THERAPY IN ROOM, CPAP SETTING CHANGED TO PRESSURE OF 12, FIO2-90. PATIENT IS MORE CALM AT THIS TIME. RN REMAINS IN ROOM. ASSESSMENT DONE. CLEMENT CATH PATENT.
--- NOTE | 2021-05-17 08:15 | NUR ---
ROUTINE MEDICATIONS GIVEN.
--- NOTE | 2021-05-17 09:11 | NUR ---
RESTLESS, ATTEMPTING TO GET OOB. RN REMAINS IN PATIENT ROOM,FOR PATIENT SAFETY.
--- NOTE | 2021-05-17 09:33 | NUR ---
REMAINS VERY RESTLESS. LEGS OVER EDGE OF BED. NOT ABLE TO CALM PATIENT. HAS BEEN PULLING AT CLEMENT CATH.
--- NOTE | 2021-05-17 10:14 | NUR ---
GEODON 10 MG IM ORDERED. PATIENT CONTINUE TO ATTEMPT TO GET OOB, IS NOT DIRECTABLE. PATIENT IS VERY RESTLESS AND FRUSTRATED.
--- NOTE | 2021-05-17 10:56 | NUR ---
EODON 10 MG IM GIVEN TO LEFT UPPER THIGH PER ORDERS. BLOOD DRAWN. RT HERE TO DRAW ABG.
--- NOTE | 2021-05-17 11:30 | NUR ---
ASSESSMENT DONE, NO CHANGES. RT HERE AND APPLIED HIGH FLOW A 15 LITERS WITH NRBM, O2 STATS TO MID 80'S. CPAP REAPPLIED.
--- NOTE | 2021-05-17 13:12 | NUR ---
GEODON 10 MG IM REPEATED PATIENT VERY AGITATED, RESTLESS., ATTEMPTING TO GET OOB. NOT ABLE TO REASON WITH PATIENT. CURRENTLY ON CPAP AT PRESSURE OF 11 AND FIO2 OF 65. O2 SAT 90. CLEMENT CATH PATENT. IVF HUNG PER ORDERS.
--- NOTE | 2021-05-17 13:19 | NUR ---
FIO2 INCREASED TO 75 FROM 65 O2 SATS 88. PATIENT BEHAVIOR REMAINS UNCHANGED. IS CONFUSED, RESTLESS, AIGTATED, DISORIENTED, FRUSTRATED. IS RAISING LEGS AT FIRMLY HITTING THEM AGAINST THE BED. CONTINUES TO BE DIFFICULT TO CONTROL.
--- NOTE | 2021-05-17 14:19 | NUR ---
CHECKING ON PT-RN SENDY IN CARING FOR PT. WILL RETURN
--- NOTE | 2021-05-17 14:30 | NUR ---
AGITATED, PULLING OFF CPAP. VERY DIFFICULT TO GET CPAP MASK BACK ON PATIENT VERY RESISTANT. WILL NOTIFY DR. DE LOS SANTOS AT [phone] - [phone] IF PATIENT STILL WITH SEVERE DELIRIUM. RN CONTINUES TO BE IN ROOM WITH PATIENT.
--- NOTE | 2021-05-17 15:30 | NUR ---
REMAINS INCOHERENT. SHAHZAD Feliciano RN WILL UPDATE DR. DE LOS SANTOS REGARDING PATIENT STATUS.
--- NOTE | 2021-05-17 15:51 | NUR ---
PRECEDEX GTT KAITLIN, INFUSING AT 0.2MCG/KG/HR. WILL GIVE 3RD DOSE OF GEODON WHEN ARRIVES FROM PHARMACY. EXTREMELY AGITATED.
--- NOTE | 2021-05-17 16:45 | NUR ---
SLEEPING WITH HOB SLIGHTLY ELEVATED. BP-101/50. PRECEDEX GTT DECREASED TO 0.2 MCG/KG/HR FROM 0.4 MCG/KG/HR. DR. DE LOS SANTOS HERE AND AWARE OF CURRENT STATUS. WILL CONTINUE TO MONITOR. CPAP ON WITH PRESSURE OF 11, FIO2 DECREASED TO 65 FROM 75.
--- NOTE | 2021-05-17 17:10 | NUR ---
Update from RN. Pt is confused today and 1:1 with an Rn in the room. No plan change for cM.
--- NOTE | 2021-05-17 18:50 | NUR ---
DR. DE LOS SANTOS AWARE OF DECREASED U/O. IVF INCREASED TO 100 ML/HR AHD LR AT 250 ML/HR FOR ONE HOUR HUNG. PRECEDEX GTT DECREASED TO 0.3 MCG/KG/HR PATIENT IS CALM.
--- NOTE | 2021-05-17 19:37 | NUR ---
REPORT RECEIVED FROM DAY SHIFT RN, CARE OF PATIENT ASSUMED AT THIS TIME. PT RESTING IN BED ON CPAP AT 65%, SPO2 = 95%. RESPIRATIONS EVEN AND UNLABORED. PRECEDEX DRIP INFUSING AT 0.3 MCG/KG/HR. IV FLUID BOLUS INFUSING AT THIS TIME ALONG WITH MAINTENCE FLUIDS.
--- NOTE | 2021-05-17 20:09 | NUR ---
UPON ASSESSMENT FOUND BLOOD AT URINARY MEATUS AROUND CLEMENT CATHETER. FULLY APPEARED TO HAVE BEEN PULLED ON. INSERTED NEW CLEMENT. IMMEDIATE RETURN OF [address]INE[address] DE LOS SANTOS UPDATED VIA TELEPHONE AT THIS TIME. PLAN TO WATCH AND SEE, ORDERS TO FLUSH WITH 100 MLS OF STERILE WATER IF RAVINDER BLOOD CONTINUE TO DRAIN FROM CATHETER. THIS RN AT BEDSIDE. BED ALARM IN PLACE. WILL CONTINUE TO MONITOR.
--- NOTE | 2021-05-17 20:52 | NUR ---
URINE OUT OF CLEMENT CATHETER IS LIGHTENED IN COLOR. SKIN CARE COMPLETED, PT TIPPED ON TO LEFT SIDE. SECURITY RAH IN ROOM ASSIST WITH TURNING PT. PRECEDEX DRIP CONTINUES TO INFUSE. 2ND FLUID BOLUS OF LR INFUSING. BED ALARM IN PLACE. WILL CONTINUE TO CLOSELY MONITOR.
--- NOTE | 2021-05-18 00:25 | NUR ---
ASSESSMENT COMPLETED. PT REMAINS ON PRECEDEX DRIP AT 0.2 MCG/KG/HR. TILTED PT ONTO RIGHT SIDE. FINE CRACKLES NOTED IN BOTH LUNG BASES. PT AROUSABLE TO LIGHT TOUCH. OPENS EYES TO VOICE AND THEN FALLS BACK TO SLEEP. IV FLUIDS CONTINE TO INFUSE. BED ALARM IN PLACE. WILL CONTINUE TO MONITOR.
--- NOTE | 2021-05-18 02:17 | NUR ---
PT REPOSITIONED ONTO BACK. REMAINS ON CPAP AT 70% FIO2. SPO2=92%. PT RESPONSIVE TO VOICE. URINE IS NOW PINK TINGED AND QUANTITY SUFFICIENT. PRECEDEX DRIP AND IV FLUIDS CONTINUE TO INFUSE. WILL CONTINUE TO MONITOR.
--- NOTE | 2021-05-18 04:16 | NUR ---
ASSESSMENT COMPLETED. PT TURNED FROM BACK UP ONTO LEFT SIDE. PLACED ON HIGH FLOW. PT RESPONSIVE TO NAME, FOLLOWED DIRECTIONS WITH ORAL CARE. BACK ON CPAP, SPO2 = 90% ON 70% FIO2. PRECEDEX AND IV FLUIDS CONTINUE TO INFUSE. WILL CONTINUE TO CLOSELY MONITOR.
--- NOTE | 2021-05-18 06:15 | NUR ---
PT TURNED ON LEFT SIDE. RESPONDING TO VOICE AND FOLLOWING DIRECTIONS. PRECEDEX CONTINUES TO INFUSE AT 0.2 MCG/KG/HR. IV FLUIDS INFUSING. WILL CONTINUE TO MONITOR.
--- NOTE | 2021-05-18 07:27 | NUR ---
Patient used call light asking to take off mask. CPAP off briefly and using high flow wall NC at 6L and non rebreather at 15L, O2 saturations down to 79%. Cpap back on for about 5 minutes and precedex titrated up to 0.4mcg/kg/hr. Patient pulling at cpap mask and yelling, "somebody help me, I can't breath, take this damn thing off me". Cpap mask off again and NC now at 15L and non rebreather at 15L, O2 sat currently 89% and patient more calm.
--- NOTE | 2021-05-18 07:30 | NUR ---
RECEIVED REPORT AT 0700. PRECEDEX DRIP JUST HAD TO BE INCREASED TO 0.4.
--- NOTE | 2021-05-18 07:51 | NUR ---
cpap mask back on and adjusted. appears to be tolerating the mask for now. following commands and not pulling at lines/mask. O2 saturation 85% so Fio2 up to 100%
--- NOTE | 2021-05-18 07:53 | NUR ---
now O2 sat up to 96% so Fio2 turned down to 80%, continues to rest calmly for now.
--- NOTE | 2021-05-18 07:54 | NUR ---
now FIo2 down to 70%. O2 saturation 95%
--- NOTE | 2021-05-18 08:00 | NUR ---
PT IS ORIENTED TO SELF AT THIS TIME. PT IS ON 0.4MCG/KG/HR AND DOING WELL WITH IT. URINE SILL VERY BLOODY AT THIS TIME. FLUSHED WITH 60MLS OS STERILE NS AND IT REMAINS BLOODY. UPPER LOBES CLEAR, LOWER LOBES HAVE CRACKLES PRESENT. NO OTHER NEW ISSUES NOTED SO FAR. WILL CONTINUE TO MONITOR.
--- NOTE | 2021-05-18 10:00 | NUR ---
PER MD DE LOS SANTOS, CLEMENT WAS FLUSHED WITH MORE STERILE NS (120MLS) AND URINE NOW IS ONLY SLIGHTLY PINK IN COLOR. ALL NS THAT WAS FLUSHED INTO THE CLEMENT HAS COME BACK OUT AGAIN. PRECEDEX DRIP TO BE TURNED OFF PER MD DE LOS SANTOS.
--- NOTE | 2021-05-18 11:00 | NUR ---
AT AROUND 1030 PT STARTED PULLING OFF C-PAP MASK AND PRECEDEX DRIP WAS RESTARTED AT 0.2MCG/KG/HR. AT THIS TIME, PT IS PULLING OFF C-PAP MASK AGAIN AND STATED THAT HE CANNOT BREATH. THERE HAS BEEN A SLIGHT DECREASE IN OXYGENATION AFTER PT COUGHT. PT APPEARS AGITATED AND RESTLESS. MD DE LOS SANTOS IS AWARE, NO NEW ORDERS RECEIVED. PRECEDEX DRIP AT 0.6MCG/KG/HR AT THIS TIME. URINE ALSO BLOODY AGAIN.
--- NOTE | 2021-05-18 13:00 | NUR ---
PT NOW ON VAPOTHERM AT 40L/ 70%. PT STILL ON 0.6MCG /KG/HR OF PRECEDEX. RUL CLEAR, ALL OTHER LOBES HAVE CRACKLES PRESENT. NO OTHER CHANGES NOTED SO FAR.
--- NOTE | 2021-05-18 14:45 | NUR ---
CLEMENT WAS IRRIGATED WITH 200MLS OF STERIL NS. LIGHT PINK URINE RETURN AFTER FLUSHING WAS NOTED. ALSO, 200MLS RETURN WAS NOTED.
--- NOTE | 2021-05-18 15:44 | NUR ---
PRECEDEX AT 0.2MCG/KG/HR AT THIS TIME.
--- NOTE | 2021-05-18 16:15 | NUR ---
ALL LOBES HAVE WHEEZING PRESENT, RT TO DO A BREATHING TREATMENT. ABD SOUNDS ARE GETTING HYPOACTIVE. URINE STILL BLOODY. NO PERPIH. EDEMA NOTED. PT STILL STATED THAT HE CANNOT BREATH ADEQUATLEY. PT STILL ON VAPOTHERM AT 40L/ 100%.
--- NOTE | 2021-05-18 17:00 | NUR ---
No change in CM plan for dc at this time.
--- NOTE | 2021-05-18 17:49 | NUR ---
AT ABOUT 1710 PT SUDDENLY TOOK OFF HIS VAPOTHERM NC. UPON ENTERING THE ROOM PT STATED THAT HE WANTED TO AND THAT HE WAS DONE WITH ALL THIS. MD DE LOS SANTOS WAS CALLED BY CALI SANDERS. PT AT FIRST WAS CALM WHEN STATING HIS WISHES BUT BECAME MORE IRRATE WITHIN A FEW MINUTES TIME. A YU PIRES WAS CALLED ALSO SINCE PT BECAME MORE AND MORE AGRESSIVE AND IRRATE. ONCE MD DE LOS SANTOS AND OTHERS CAME, PT WAS PUT BACK ON VAPOTHERM AND NON-REBR. MASK ALSO. PRECEDEX DRIP AT 0.8MCG/KG/HR. 0.5MG ATIVAN WAS GIVEN.
--- NOTE | 2021-05-18 20:45 | NUR ---
SHIFT REPORT RECEIVED FROM TOMMY HE. PT TAKEN DOWN TO IMAGING ON NRB AT 25L. TOLERATED WELL, SPO2 REMAINED >90%. PT BACK TO ROOM. CLEMENT EXCHANGED TO 3-WAY CATHETER FOR CBI. MANUALLY IRRIGATED LARGE BLOOD CLOT AND THEN ABLE TO TITRATE CBI FLOW FOR PINK COLORED URINE OUTPUT. PT BACK ON VAPOTHERM AT 40L @ 100% WITH 15+L NRB OVER TOP. PRECEDEX INFUSION TITRATED TO 1 MCG/KG/HR.
--- NOTE | 2021-05-18 20:45 | NUR ---
SHIFT REPORT RECEIVED FROM TOMMY HE. PT TAKEN DOWN TO IMAGING ON NRB AT 25L. TOLERATED WELL, SPO2 REMAINED >90%. PT BACK TO ROOM. CLEMENT EXCHANGED TO 3-WAY CATHETER FOR CBI. MANUALLY IRRIGATED LARGE BLOOD CLOT AND THEN ABLE TO TITRATE CBI FLOW FOR PINK COLORED URINE OUTPUT. PT BACK ON VAPOTHERM AT 40L @ 100% WITH 15+L NRB OVER TOP. PRECEDEX INFUSING-SEE EMAR FOR TITRATIONS. ASSESSMENT COMPLETED-SEE DOCUMENTATION. BED ALARM ON FOR SAFETY.
--- NOTE | 2021-05-18 21:50 | NUR ---
PT PLACED ON CPAP 12 @ 100% AT THIS TIME DUE TO SPO2 80-84% ON VAPOTHERM 40L @ 100% AND 15+L NRB OVER TOP. MD DE LOS SANTOS IN UNIT.
--- NOTE | 2021-05-18 22:15 | NUR ---
DR. DE LOS SANTOS IN ROOM. LEVOPHED STARTED PER VERBAL ORDER AT 5 MCG/MIN FOR BP:84/56 (66).
--- NOTE | 2021-05-18 22:30 | NUR ---
50MCG IV FENTANYL GIVEN FOR AGITATION AND AIR HUNGER.
--- NOTE | 2021-05-18 23:00 | NUR ---
LEVOPHED OFF, BP: 163/129 (141)
--- NOTE | 2021-05-18 23:05 | NUR ---
50MCG IV FENTANYL AND 1MG IV ATIVAN GIVEN FOR AIR HUNGER AND AGITATION.
--- NOTE | 2021-05-18 23:45 | NUR ---
2325: 25MG IV KETAMINE GIVEN FOR AGITATION. 2345: 50MCG IV FENTANYL GIVEN FOR AGITATION AND AIR HUNGER.
--- NOTE | 2021-05-19 | NUR ---
ASSESSMENT COMPLETED. PT REMAINS SEDATED WITH PRECEDEX. CPAP PRESSURE HAS BEEN INCREASED TO 18, FIO2 REMAINS AT 100%. CBI CONTINUES, URINE PINK IN COLOR, NO MORE CLOTS NOTED. IV SITES INTACT AND PATENT. RESTRAINTS REMAIN IN PLACE TO BILATERAL WRISTS, CMS INTACT. BED ALARM REMAINS ON FOR SAFETY.
--- NOTE | 2021-05-19 00:25 | NUR ---
0010: 1MG IV ATIVAN GIVEN FOR AGITATION 0025: 50MCG IV FENTANYL GIVEN FOR AGITATION/AIR HUNGER.
--- NOTE | 2021-05-19 01:20 | NUR ---
25MG IV KETAMINE GIVEN FOR AGITATION.
--- NOTE | 2021-05-19 02:00 | NUR ---
WRIST RESTRAINTS REMAIN IN PLACE, CMS REMAINS INTACT, CAP REFILL SLIGHTLY SLUGGISH BUT EXTREMITIES ARE WARM AND PERIPHERAL PULSES ARE STRONG.
--- NOTE | 2021-05-19 02:00 | NUR ---
50MCG IV FENTANYL GIVEN AT THIS TIME PER DR. DE LOS SANTOS, AT BEDSIDE.
--- NOTE | 2021-05-19 03:50 | NUR ---
0130: DR. DE LOS SANTOS ABLE TO CONTACT PT'S SON, MARYANA, REGARDING PT'S INCREASING OXYGEN DEMANDS. PT'S SON CONFIRMS THAT PT IS TO BE FULL CODE AND WAS MADE AWARE BY DR. DE LOS SANTOS THAT THE PLAN IS TO INTUBATE. ENVIRONMENTAL MONITORING SPECIALIST RN AND IT ASSISTANT MADE AWARE OF PLAN. 0142: PT INTUBATED, SIZE 8.0 TUBE, SECURED AT 24CM AT TEETH. 0202: LEVOHED STARTED AND TITRATED-SEE EMAR. PROPOFOL STARTED AT 50MCG/KG/MIN. 50MCG IV FENTANYL GIVEN PER MD. ABG OBTAINED BY DR. DE LOS SANTOS. DR. FIORE IN TO START CENTRAL LINE, SINGLE LUMEN PLACED IN RIGHT IJ. CENTRAL LINE AND ETT PLACEMENT VERIFIED WITH CHEST X-RAY. ~0230: PT TAKEN DOWN TO IMAGING ON VENT FOR CHEST CT TO RULE OUT P.E. VENT SETTINGS: VC-AC, RATE 28, 100% FIO2, VT 440, PEEP 16. ~0300: UPON RETURNING TO ROOM FROM CT, FOUND THAT CENTRAL LINE HAD BEEN PULLED OUT, CATHETER TIP INTACT, NO BLEEDING FROM SITE. [facility] NOW HERE. FIXED WING TO BE AT AIRPORT CLOSER TO 0330. 0340: PT LEFT WITH [facility] BY AMBULANCE UP TO AIRPORT. 0350: REPORT CALLED TO [facility]. UPDATE ALSO GIVEN TO PT'S SON ABOUT TRANSFER AND ALSO PROVIDED WITH ROOM NUMBER AND CONTACT PHONE NUMBER FOR [facility]
--- NOTE | 2021-05-19 11:38 | OR ---
[facility] [address] [facility] [place], [place] [address] Signed DATE OF OPERATION: 05/19/2021 SURGEON: Vee Fiore MD TIME: 2:00 a.m. PREOPERATIVE DIAGNOSES: 1. Critical illness, progressive hypoxemic respiratory failure secondary to coronavirus disease-19. 2. Episodic requirement for pressor agents. POSTOPERATIVE DIAGNOSES: 1. Critical illness, progressive hypoxemic respiratory failure secondary to coronavirus disease-19. 2. Episodic requirement for pressor agents. PROCEDURE: Placement of right internal jugular central venous catheter (single-lumen catheter). ANESTHESIA: 1% lidocaine. INDICATION: This 86-year-old white man, was just intubated for progressive respiratory failure related to COVID-19 infection. A central venous catheter was requested by his primary managing physician, Dr. De Los Santos. The patient has been in the hospital since 15 May. There is no family available and the patient is completely obtunded, having undergone intubation. On that basis, an administrative consent, acknowledged risk of bleeding, infection, arterial injury, pneumothorax and so forth. FINDINGS: Dark nonpulsatile blood was noted from the right internal jugular vein. Catheter was placed without problem. Chest x-ray is pending. DESCRIPTION OF PROCEDURE: The patient had just been intubated and was placed in a supine position with the head turned to the left. The anterior neck was prepared with a chlorhexidine solution for single-lumen catheter kit. The area was draped sterilely. I was in full protective gear. A sterile gown and sterile gloves were used obviously. Electronically Signed By: VEE FIORE MD 05/19/21 1138 PATIENT NAME: TRAVIS PIERSON OPERATIVE REPORT DATE OF : 37 REPORT #: [id number] PHYSICIAN: VEE FIORE MD PCP: OTHER PCP REPORT IS CONFIDENTIAL AND NOT TO BE RELEASED WITHOUT AUTHORIZATION [facility] [address] [place], [place] [address] Signed Access to the right internal jugular vein was noted showing dark nonpulsatile blood. A flexible J-wire was passed down the needle, needle was removed. The site was incised with an #11 blade and dilated with enclosed blue dilator. A previously inspected single-lumen central venous catheter was placed over the wire and the wire was removed. Aspiration showed dark nonpulsatile blood. A evin was applied and the line was flushed with saline solution. An anti-infective disk was applied after securing the catheter with the enclosed silk stitch on a Kingsley needle. A SorbaView dressing was then applied. His chest x-ray is pending. MD MANNY Lou/ANISH /[id number] cc: MD Sussy Sanchez MD Copies: AMERICA DE LOS SANTOS MD, CYNTHIA MD ~ Electronically Signed By: VEE FIORE MD 05/19/21 1138 PATIENT NAME: JUANCARLOSVIOLETTRAVIS BRIGGS OPERATIVE REPORT DATE OF : 37 REPORT #: [id number] PHYSICIAN: VEE FIORE MD PCP: OTHER PCP REPORT IS CONFIDENTIAL AND NOT TO BE RELEASED WITHOUT AUTHORIZATION
--- NOTE | 2021-05-19 11:38 | CONS ---
[facility] [address] [place], [place] [address] Signed DATE OF CONSULTATION: 05/19/2021 REQUESTING PHYSICIAN: Dr. De Los Santos. PROBLEM: 1. Need for central venous access for possible pressor agent. 2. SARS-CoV-2 progressive hypoxemic respiratory failure. HISTORY OF PRESENT ILLNESS: This 86-year-old white man is from [place], who was admitted on May 15 for COVID pneumonia. Later in the day today, he had rather severe agitation related to hypoxemia. His care is now assumed by Dr. De Los Santos, initially by Dr. Nagy. The patient was placed on CPAP therapy with maximize settings of CPAP of 18 and 100% FiO2. The patient has had progressive deterioration and is anticipated to have intubation. He did require norepinephrine briefly due to some hypotension. Plans are made now for intubation and transfer to a tertiary center for further management. I was asked by Dr. De Los Santos to consider placement of central venous catheter on the basis of a request for receiving hospital to have central access for possible need for pressor agents. There is no family in attendance at this time. I have reviewed his chart in detail. 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 On exam, the patient appears to be with some respiratory distress with deep rhythmic inspirations. Anticipation is made for intubation by the generation engineering technologist. Chest x-ray was reviewed from 2144May 18, which shows diffuse interstitial infiltrates. There is a left-sided pacemaker and an aortic valve annular ring. There is no evidence of pneumothorax currently. He has a right shoulder joint prosthesis noted. Labs studies were reviewed, which showed a white count of 5.9 on May 17, hematocrit of 34.3, platelets 208,000. Coag studies showing an INR of 2.11 today. Urinalysis essentially normal. Coronavirus by PCR noted to be positive on May 10 and persistently so yesterday. Influenza and RSV and influenza type B are negative. ASSESSMENT: Central venous catheterization is requested for possible use of pressor agents going forward. The patient is imminently to be intubated by the generation engineering technologist given his Electronically Signed By: VEE FIORE MD 05/19/21 1138 PATIENT NAME: TRAVIS PIERSON CONSULTATION DATE OF : 37 REPORT #: [id number] PHYSICIAN: VEE FIORE MD PCP: OTHER PCP REPORT IS CONFIDENTIAL AND NOT TO BE RELEASED WITHOUT AUTHORIZATION [facility] [address] [place] [id number] Signed respiratory decompensation. I believe a right-sided internal jugular venous catheter would be most appropriate given his anticoagulation and other factors. The risk of bleeding, infection, misplacement (arterial), and other unforeseen complications are acknowledged by the care team. The patient is unable to provide consent for this procedure and there were no family members readily available. On that basis, an administrative consent is deemed reasonable. MD MANNY Lou/ANISH /[id number] cc: America De Los Santos MD Copies: AMERICA DE LOS SANTOS MD ~ Electronically Signed By: VEE FIORE MD 05/19/21 1138 PATIENT NAME: TRAVIS PIERSON CONSULTATION DATE OF : 37 REPORT #: [id number] PHYSICIAN: VEE FIORE MD PCP: OTHER PCP REPORT IS CONFIDENTIAL AND NOT TO BE RELEASED WITHOUT AUTHORIZATION
== END 2021-05-19 03:40 | disposition short-term general hospital (02) | DRG 177 ==
LOC: ED 07:42 → CCU 07:44
PROVIDERS: ADMIT Internal Medicine; ATTEND Internal Medicine
PROC: 5A09457 Assistance with Respiratory Ventilation, 24-96 Consecutive Hours, Continuous Positive Airway Pressure (ICD-10-PCS; 2021-05-15)
PROC: 3E0DX3Z Introduction of Anti-inflammatory into Mouth and Pharynx, External Approach (ICD-10-PCS; 2021-05-15)
PROC: 02HV33Z Insertion of Infusion Device into Superior Vena Cava, Percutaneous Approach (ICD-10-PCS; principal; 2021-05-19)
PROC: XW0DXM6 Introduction of Baricitinib into Mouth and Pharynx, External Approach, New Technology Group 6 (ICD-10-PCS; 2021-05-19)
PROC: 3E033XZ Introduction of Vasopressor into Peripheral Vein, Percutaneous Approach (ICD-10-PCS; 2021-05-19)
DX: U07.1 COVID-19 (principal); J96.01 Acute respiratory failure with hypoxia; J12.82 Pneumonia due to coronavirus disease 2019; G93.41 Metabolic encephalopathy; F05 Delirium due to known physiological condition; J44.0 Chronic obstructive pulmonary disease with (acute) lower respiratory infection; R04.2 Hemoptysis; R45.1 Restlessness and agitation; K21.9 Gastro-esophageal reflux disease without esophagitis; N40.0 Benign prostatic hyperplasia without lower urinary tract symptoms; F39 Unspecified mood [affective] disorder; I10 Essential (primary) hypertension; I48.91 Unspecified atrial fibrillation; G31.84 Mild cognitive impairment of uncertain or unknown etiology; E11.9 Type 2 diabetes mellitus without complications; Z96.653 Presence of artificial knee joint, bilateral; E78.5 Hyperlipidemia, unspecified; I25.10 Atherosclerotic heart disease of native coronary artery without angina pectoris; Z95.2 Presence of prosthetic heart valve; Z79.01 Long term (current) use of anticoagulants; Z95.0 Presence of cardiac pacemaker; Z98.890 Other specified postprocedural states; Z79.51 Long term (current) use of inhaled steroids; Z79.899 Other long term (current) drug therapy; Z79.02 Long term (current) use of antithrombotics/antiplatelets
CPT/HCPCS: 31500; 36600; 70450; 71045; 71260; 80053; 81001; 82803; 83605; 83735; 83880; 85025; 85610; 87040; 87070; 87075; 87205; 93005; 93010; 94002; 94640; 94660; 94799; 96365; 96367; 96375; 96376; 97162; A9270; G0378; J0330; J1100; J1650; J1940; J2001; J2060; J2250; J2543; J2704; J3010; J3486; J7121; Q9967; U0003